=== PATIENT | female | born 1970 | race Caucasian/White ===

== ENCOUNTER 2017-03-04 14:07 | Emergency (ER) | payer SELFPAY, MEDICAID | END 2017-03-07 09:57 | disposition left against medical advice (07) | LOC: E/R 14:07 | DX: Z53.21 Procedure and treatment not carried out due to patient leaving prior to being seen by health care provider (principal) ==

== ENCOUNTER 2017-05-17 17:03 | Emergency (ER) | payer OTHER, MEDICAID | END 2017-05-17 17:22 | disposition home or self-care (01) | LOC: E/R 17:03 | DX: K08.89 Other specified disorders of teeth and supporting structures (principal); R19.7 Diarrhea, unspecified | CPT/HCPCS: 99284; Z7502 ==